=== PATIENT | female | born 1990 | race Caucasian/White ===

== ENCOUNTER → 2020-01-16 15:56 | Outpatient (CLI) | payer OTHER, SELFPAY ==
--- NOTE | ~2020-01-16 | US_ITS ---
EXAMINATION: US OB transvaginal EXAM DATE: 01/16/2020 16:24 INDICATION: For dating. . First trimester. TECHNIQUE: Pelvic obstetrical transabdominal sonogram was performed by a technologist. There are mu ltiple grayscale and Doppler images available for interpretation. There are no earlier studies of th is gestation for comparison. FINDINGS: Uterus measures 9.6 x 5.1 x 7.0 cm. There is intrauterine gestation sac. pole with heart rate confirmed at 124 beats per minute. The 3 mm crown-rump length corresponds to estimated ge stational age by ultrasound of 5 weeks 6 days, estimated date of confinement 09/11/2020. Yolk sac is identified. There is no sonographic evidence of subchorionic hemorrhage. Right ovary is morpholo gically normal, left not identified. IMPRESSION: Early live intrauterine gestation, age by crown-rump length 5 weeks 6 days. Reviewed, dictated and finalized at location A. L MACHINE SETTER
== END ==
PROVIDERS: Visit Provider Obstetrics & Gynecology
DX: O26.841 Uterine size-date discrepancy, first trimester (principal); Z3A.01 Less than 8 weeks gestation of pregnancy
CPT/HCPCS: 76817

== ENCOUNTER 2020-04-10 14:33 | Outpatient (CLI) | payer OTHER, SELFPAY ==
--- NOTE | ~2020-04-10 | US_ITS ---
EXAMINATION: US OB /maternal detail DATE: 04/10/2020 15:24 INDICATION: survey TECHNIQUE: Multiple obstetric sonographic images performed. FINDINGS: No prior studies for comparison. There is a single living fetus in vertex presentation. The placenta is anterior without placenta pre via. Placental margin is 6.1 cm to the cervix. Amniotic fluid volume is normal. cardiac activity and movement is noted with a heart rate of 139 beats per minute. The following anatomy was identified as normal: 4 chamber heart 3 vessel cord cord insertion kidneys urinary bladder stomach spine diaphragm ventricles cisterna magna cerebellum The following biometric data were obtained: BPD: 42mm corresponds to gestational age 18 weeks 6 days. Head circumference: 161 mm corresponds to gestational age 18 weeks 6 days. Abdominal circumference: 129 mm corresponds to gestational age 18 weeks 3 days. Femur length: 25 mm corresponds to gestational age 17 weeks 3 days. Head circumference to abdominal circumference ratio: 1.25 (normal range for expected gestational age is 1.08-1.27). Estimated weight: 223 grams +/- 33 grams using Hadlock method. IMPRESSION: 1: Single living intrauterine with an estimated gestational age of 18weeks 0days by initial ultrasound measurements, with an EDC of 09/11/2020 in vertex presentation. Appropriate interval feta l growth. 2. Normal survey. Reviewed, dictated and finalized at location A. IMPRESSION: 1: Single living intrauterine with an estimated gestational age of 18 weeks 0days by initial ultrasound measurements, with an EDC of 09/11/2020 in ve rtex presentation. Appropriate interval growth. 2. Normal survey.
== END 2020-04-10 14:34 | disposition home or self-care (01) ==
PROVIDERS: Visit Provider Obstetrics & Gynecology
DX: Z36.89 Encounter for other specified antenatal screening (principal); Z3A.18 18 weeks gestation of pregnancy
CPT/HCPCS: 76805

== ENCOUNTER 2020-09-15 08:41 | Inpatient (IN) | payer OTHER, SELFPAY ==
[2020-08-13 12:57] VITALS: BMI 30.4
[2020-09-15] VITALS (70 sets, daily range): BP systolic 88–152; BP diastolic 35–139; PULSE 57–97; RESP 18–20; TEMP 36.6–37.4; O2SAT 98–100; BMI 31.8
--- NOTE | 2020-09-15 09:25 | LDADM ---
This patient, Ivelisse Mosqueda, was admitted to Labor/Delivery/Recovery 105 on 09/15/20 at 08:41. Plans for labor, pain management and were discussed with patient. Patient/family oriented to hospital policies and general routines including ID bracelet, bed and alarms, visiting hours, pain management, procedures, bathroom and other care routines, personal items, smoking policy, room service/diet and guest tray routines, infant security routines, and visiting hours. Patient/Family are encouraged to report perceived risks to care and to ask questions if they do not understand what they are told or what they should do. See OBIX for further documentation.
[2020-09-15 09:56] LABS: Basophils Percent Auto 0.3 % (0.2-1.2); Eosinophils Absolute Auto 0.1 K/mm3 (0-0.3); Eosinophils Percent Auto 0.7 % (0-4.4); Hematocrit 38.5 % (37.0-47.0); Hemoglobin 13.5 g/dL (12.0-15.0); Immature Granulocyte Absolute 0.11 K/mm3 (0.00-0.031); Lymphocytes Absolute Auto 1.71 K/mm3 (0.9-3.2); Lymphocytes Percent Auto 16.2 % (18.3-44.2); Mean Corpuscular HGB Conc 35.1 g/dl (32-36); Mean Corpuscular Hemoglobin 32.7 pg (26-34); Mean Corpuscular Volume 93.2 fl (80-100); Mean Platelet Volume 11.6 fl (7.4-10.4); Monocytes Absolute Auto 0.9 K/mm3 (0.1-0.6); Monocytes Percent Auto 8.5 % (2.6-8.5); Neutrophils Absolute Auto 7.7 K/mm3 (1.3-6.7); Neutrophils Percent Auto 73.3 % (45.5-73.1); Platelet Count Result 193 k/mm3 (150-375); Red Blood Count 4.13 M/mm3 (4.2-5.4); Red Cell Distribution Width 12.3 % (11.5-14.5); White Blood Count 10.6 K/mm3 (4.5-10.0)
[2020-09-15] MEDS: OXYTOCIN 30 UNITS/NS 500 ML 30 UNITS/500 ML BAG 6 UNITS IV CONT (10:30)
[2020-09-15] MEDS: LACTATED RINGERS 1,000 ML 125 ML IV CONT (10:31)
[2020-09-15] MEDS: fentaNYL CITRATE INJ (*CRX) 100 MCG/2 ML VIAL 50 MCG IV PUSH (13:36)
--- NOTE | 2020-09-15 14:57 | WPDANESEPP ---
Anes - Eval Pre Procedure Procedure: labor epidural Date/Time: 09/15/20 14:57 Pre Op Diagnosis: SROM Patient Data Age: 30 Gender: F Height: 1.65 m Weight: 87 kg Last Vital Signs Temp 36.8 C 09/15/20 13:33 Pulse 75 09/15/20 14:56 BP 138/69 09/15/20 14:56 Pulse Ox 98 09/15/20 14:55 Allergies Allergy/AdvReac Type Severity Reaction Status Date / Time No Known Allergies Allergy Verified 08/13/20 12:51 Home Medications Medication Instructions Recorded Confirmed Type [id number]-FA 1 tablet PO DAILY 08/13/20 08/13/20 History [] ascorbic acid (vitamin C) [Vitamin 500 mg PO DAILY 08/13/20 09/15/20 History C] calcium carbonate [Tums] 200 mg PO PRN PRN 08/13/20 08/13/20 History ergocalciferol (vitamin D2) 1 unit PO WEEKLY 08/13/20 09/15/20 History [Vitamin D2] inulin [Fiber Gummies] 2 g PO DAILY 08/13/20 09/15/20 History Laboratory Tests 09/15/20 09/15/20 09/15/20 09:43 09:43 09:43 WBC 10.6 K/mm3 H K/mm3 (4.5-10.0) RBC 4.13 M/mm3 L M/mm3 (4.2-5.4) Hgb 13.5 g/dL g/dL (12.0-15.0) Hct 38.5 % % (37.0-47.0) MCV 93.2 fl fl (80-100) MCH 32.7 pg pg (26-34) MCHC 35.1 g/dl g/dl (32-36) RDW 12.3 % % (11.5-14.5) Plt Count 193 k/mm3 k/mm3 (150-375) MPV 11.6 fl H fl (7.4-10.4) Immature Gran % (Auto) 1.0 % H % (0-0.5) Neut % (Auto) 73.3 % H % (45.5-73.1) Lymph % (Auto) 16.2 % L % (18.3-44.2) [place] % (Auto) 8.5 % % (2.6-8.5) Eos % (Auto) 0.7 % % (0-4.4) Baso % (Auto) 0.3 % % (0.2-1.2) Lymph # (Auto) 1.71 K/mm3 K/mm3 (0.9-3.2) [place] # (Auto) 0.9 K/mm3 H K/mm3 (0.1-0.6) Eos # (Auto) 0.1 K/mm3 K/mm3 (0-0.3) Baso # (Auto) 0.0 K/mm3 K/mm3 (0.0-0.1) Abs Immat Gran (auto) 0.11 K/mm3 H K/mm3 (0.00-0.031) Absolute Neuts (auto) 7.7 K/mm3 H K/mm3 (1.3-6.7) Absolute Nucleated RBC 0.0 K/mm3 K/mm3 (0.0-0.012) Nucleated RBC % 0.0 % % (0.0-0.2) RPR Pending Blood Type A Positive Antibody Screen Negative Patient hx anesthesia problems: none Family hx anesthesia problems: none PMFSH Family History Family History Father Hypertension Mother Hypertension Social History Social History Smoking status: Never smoker Substance use: never Gender identity (if verbalized by the patient): Female Spiritual care concerns: No Exam Day of Procedure 09/15/20 14:57 Patient weight: overweight Heart: regular rate and rhythm Lungs: normal air movement Airway: Mallampati scale class II Neurological: alert and oriented
[2020-09-15] MEDS: ONDANSETRON INJ 4 MG/2 ML VIAL IV PUSH (17:25)
--- NOTE | 2020-09-15 20:32 | WPDOBADMIT ---
Obstetrics - Admit Note Admission Note: record reviewed. No pertinent additions to the history and/or any subsequent changes in the physical findings that are not consistent with the expected course of the were found. Additions to the history and/or subsequent changes in the physical findings follow. None.Here with SROM. Coby started this am. C/P on my arrival.
--- NOTE | 2020-09-15 20:32 | PM.OBPRVD ---
OB - Delivery Note Procedure Delivery date: 09/15/20 Procedure: events: Labor Induction (post SROM) Intrapartal events: None Induction method: per pitocin protocol Delivery monitor: external FHT and external uterine Route of delivery: Laceration Description: Perineal - 2nd Degree (hymen from 2-9 posterior avulsed prior to my arrival) Delivery repair: vicryl (3-0) Specimen: Yes Anesthesia type: Epidural Disposition: floor Baby Date of : 09/15/20 Weeks of gestation at delivery: 40 gender: Female Weight (pounds): 7 Weight (ounces): 1 presentation: vertex Placenta delivery description: Manual Removal (in pieces) cord vessel description: 3 Vessels score one minute: 9 score five minutes: 9
--- NOTE | 2020-09-15 20:35 | PM.OBDSVD ---
DS: Admitting Diagnosis Admitting Diagnosis Admitting Diagnosis: SROM DS: Discharge Diagnosis Discharge Diagnosis (1) (normal spontaneous vaginal delivery): Code(s): O80 - Encounter for full-term uncomplicated delivery Status: Acute (2) 40 weeks gestation of : Code(s): Z3A.40 - 40 weeks gestation of Status: Acute OB - DS: Summary OB Procedures : Ultrasound OB Procedures Intrapartum: Spontaneous Vag Delivery OB Procedures: : None Peripartum Data Infant Delivery Method: Natural Vaginal Laceration Description: Perineal - 2nd Degree complications: none Status at Discharge Functional status at discharge: independent ambulation Overall status at discharge: patient is progressing back to baseline Time Spent with Patient Time attestation: Total time spent providing and/or coordinating discharge services: DS: Data Data Completed and Pending Labs on day of discharge: Labs from last 24 hours 09/15/20 09/15/20 09/15/20 09:43 09:43 09:43 WBC 10.6 H RBC 4.13 L Hgb 13.5 Hct 38.5 MCV 93.2 MCH 32.7 MCHC 35.1 RDW 12.3 Plt Count 193 MPV 11.6 H Immature Gran % (Auto) 1.0 H Neut % (Auto) 73.3 H Lymph % (Auto) 16.2 L [place] % (Auto) 8.5 Eos % (Auto) 0.7 Baso % (Auto) 0.3 Lymph # (Auto) 1.71 [place] # (Auto) 0.9 H Eos # (Auto) 0.1 Baso # (Auto) 0.0 Abs Immat Gran (auto) 0.11 H Absolute Neuts (auto) 7.7 H Absolute Nucleated RBC 0.0 Nucleated RBC % 0.0 RPR Pending Blood Type A Positive Antibody Screen Negative Discharge Plan Discharge Attending physician on discharge: Martinez De La Cruz Discharging Clinician: Yuly Quesada Anticipated Discharge Date/Time: 09/17/20 08:36 Patient Disposition: Home, Self-Care Activity: may shower and pelvic rest Diet: regular Patient Instructions: Antibiotic Form Stand Alone Forms: General Discharge Information Follow-up/Referrals: Martinez De La Cruz MD [Physician] - 6 Weeks Discharge Medications: Continued 28-800 mg-mcg Tablet 1 tablet PO DAILY RF: 0 ergocalciferol (vitamin D2) [Vitamin D2] 1,250 mcg (50,000 unit) Capsule 1 unit PO WEEKLY RF: 0 ascorbic acid (vitamin C) [Vitamin C] 500 mg Tablet,Chewable 500 mg PO DAILY RF: 0 Fiber Gummies 2 gram Tablet,Chewable 2 g PO DAILY RF: 0 calcium carbonate [Tums] 200 mg calcium (500 mg) Tablet,Chewable 200 mg PO PRN PRN (Reason: Heartburn) RF: 0 Date of admission: 09/15/20 08:41 Primary Care Provider: PHYSICIAN,MACHINE SHOP SPECIALIST Admitting Provider: Martinez De La Cruz Attending physician on admission: Martinez De La Cruz Condition: Stable Care Plan Goals: plans condoms for control
[2020-09-15] MEDS: OXYTOCIN 30 UNITS/NS 500 ML 30 UNITS/500 ML BAG 125 UNITS IV CONT (20:45)
[2020-09-15] MEDS: BENZOCAINE 20% AER SPR (*SP) 56 GM CAN 1 SPRAY TOPICAL (22:24)
[2020-09-15] MEDS: WITCH HAZEL 40 PADS 1 PAD TOPICAL (22:24)
--- NOTE | 2020-09-15 23:00 | OBPPTRN ---
Patient transferred to post room #292 via wheelchair with in crib. Support person present. Oriented to unit, room, information board, rooming in, admission packet and security measures. Patient verbalizes understanding.
[2020-09-16 06:02] LABS: Hematocrit 39.2 % (37.0-47.0); Hemoglobin 13.6 g/dL (12.0-15.0)
[2020-09-16] MEDS: IBUPROFEN 600 MG TABLET PO ×3 (06:55→21:10)
[2020-09-16] MEDS: MULTIVIT/MIN/PREN/FOL AC/IRON TABLET 1 TAB PO (06:55)
[2020-09-16] MEDS: LANOLIN (LANSINOH) 7.5 GM CREAM 1 APPLIC TOPICAL (06:56)
[2020-09-16] MEDS: DOCUSATE SODIUM 100 MG CAPSULE PO (06:56)
[2020-09-16 07:00] VITALS: BP 116/64; PULSE 67; RESP 14; TEMP 36.8; O2SAT 98
--- NOTE | 2020-09-16 07:39 | PM.OBPNVD ---
OB - PN: Subj Subjective Date/time seen: 09/16/20 07:39 doing well has not voided since delivery full bladder OB - PN: Obj Data Labs CBC & Chem 7: 09/16/20 05:01 Labs: Laboratory Results - last 24 hr 09/15/20 09/15/20 09/16/20 09:43 09:43 05:01 WBC 10.6 H RBC 4.13 L Hgb 13.5 13.6 Hct 38.5 39.2 MCV 93.2 MCH 32.7 MCHC 35.1 RDW 12.3 Plt Count 193 MPV 11.6 H Immature Gran % (Auto) 1.0 H Neut % (Auto) 73.3 H Lymph % (Auto) 16.2 L [place] % (Auto) 8.5 Eos % (Auto) 0.7 Baso % (Auto) 0.3 Lymph # (Auto) 1.71 [place] # (Auto) 0.9 H Eos # (Auto) 0.1 Baso # (Auto) 0.0 Abs Immat Gran (auto) 0.11 H Absolute Neuts (auto) 7.7 H Absolute Nucleated RBC 0.0 Nucleated RBC % 0.0 Blood Type A Positive Antibody Screen Negative OB - PN A/P Assessment and Plan (1) (normal spontaneous vaginal delivery): Code(s): O80 - Encounter for full-term uncomplicated delivery Status: Acute Assessment and Plan: plan straight catheter for bladder. continue with post op care. Time Spent With Patient Time: Total time spent is greater than 50% in coordination of care (as documented) at patient's floor/unit and/or counseling patient: Exam : Other: uterus above umbilicus, bladder scan shows full bladder 1300 cc
[2020-09-16 08:52] LABS: Rapid Plasma Reagin Non-Reactive (NonReactive)
--- NOTE | 2020-09-16 11:20 | PC.NURSE ---
Mother called out for assist with feeding. Consulted with patient, mother reprots slight tenderness with feedings. Discussed tenderness is normal and reviewed nipple care. Reviewed feeding cues, frequencies, duration of feedings, feeding elimination flow sheet, and signs of adequate intake. Demonstrated stimulation techniques to wake for feeding. Assisted with infant to breast. Reviewed positioning/alignment in cross cradle, holding breast in U hold and guided asymmetrical latch on. Infant was able to latch correctly. nursed sleepily, with bursts of steady draws followed with long pausing and occasional swallowing noted. Reviewed signs of a correct latch, effective nursing and suck swallow ratio. Infant was able to maintain latch without discomfort to mother. Suggested to stimulate while feeding to keep infant awake and nursing effectively for increased intake and to assist with maintaining deep latch. Demonstrated how to adjust latch more deeply while feeding. Instructed mother to call out for RN assistance if she is unable to latch infant for feeding or she has discomfort with nursing. Instructed feeding should be initiated three hours from start of last feeding or if feeding cues are noted before. Mother voiced understanding of information shared.
[2020-09-16] MEDS: ACETAMINOPHEN 325 MG TABLET 650 MG PO (16:55)
[2020-09-16 20:30] VITALS: BP 120/55; PULSE 65; RESP 18; TEMP 37.2
[2020-09-17] MEDS: IBUPROFEN 600 MG TABLET PO ×2 (05:52→12:14)
[2020-09-17] MEDS: ACETAMINOPHEN 325 MG TABLET 650 MG PO ×2 (05:53→12:17)
--- NOTE | 2020-09-17 07:49 | PM.OBPNVD ---
OB - PN: Subj Subjective Date/time seen: 09/17/20 07:49 Patient comments: no complaints and pain well controlled baby status: doing well and nursing well OB - PN: Obj Data Labs CBC & Chem 7: 09/16/20 05:01 Labs: Laboratory Results - last 24 hr 09/15/20 09:43 RPR Non-reactive OB - PN A/P Plan day: 2 Plan: routine care, discharge home, follow up 6 weeks and other (plans condoms ) Time Spent With Patient Time: Total time spent is greater than 50% in coordination of care (as documented) at patient's floor/unit and/or counseling patient: Exam : Bimanual exam- vagina & uterus: other (Uterus firm, nt @U)
--- NOTE | 2020-09-17 08:00 | PC.NURSE ---
PT introductions made and plan of care discussed per post , pain management, breast feeding daily care activities and pending discharge to home. PT verbalized understanding of such care.
[2020-09-17 08:10] VITALS: BP 104/65; PULSE 66; RESP 16; TEMP 36.8; O2SAT 98
--- NOTE | 2020-09-17 09:15 | PC.NURSE ---
Consulted with patient, mother reports infant has been eagerly feeding with slight tenderness, more to right than left. Demonstrated stimulation techniques to wake infant for feeding. Assisted with infant to breast. sleepy several minutes of stimulate to wake to feed. Reviewed infant feeding cues, frequencies, duration of feedings, feeding elimination flow sheet, and signs of adequate intake. Reviewed positioning/alignment in cross cradle, holding breast in U hold and guided asymmetrical latch on. Infant was able to latch correctly. Infant nursed eagerly, with steady draws and occasional swallowing noted. Reviewed signs of a correct latch, effective nursing and suck swallow ratio. Infant was able to maintain latch without discomfort to mother. Nipple care reviewed. Advised to stimulate to keep awake and nursing effectively for increased intake and to assist with maintaining deep latch. Mother is feeding as required and waking infant to feed if needed. Infant is currently meeting outcomes for weight, output, jaundice and feeding frequencies. Mother states she feels confident to continue effective at home. Reviewed transition to breast milk, signs of adequate intake, and engorgement/relief. Instructed to call ICP if intake/output less than required. Reviewed regular medications mother is taking. Information provided per Lizz. Reviewed community resources on the [facility] website and in the Mom/Baby guide. Information on outpatient services provided. Mother has no further questions at this time.
--- NOTE | 2020-09-17 10:00 | PC.NURSE ---
Patient viewed the discharge video Mother & Baby Care, The First Two Weeks . Patient was given the opportunity and encouraged to ask questions. Patient verbalized understanding of information shared and has been given the mother/baby guide for home reference.
[2020-09-17 11:30] VITALS: PULSE 66; RESP 16; O2SAT 98
--- NOTE | 2020-09-17 12:00 | PC.NURSE ---
PT received discharge instructions per protocol and verbalized understanding of such instructions.
[2020-09-17] MEDS: DOCUSATE SODIUM 100 MG CAPSULE PO (12:14)
[2020-09-17] MEDS: MULTIVIT/MIN/PREN/FOL AC/IRON TABLET 1 TAB PO (12:17)
--- NOTE | 2020-09-17 12:40 | PC.NURSE ---
PT discharged to home ambulatory accompanied by spouse and and taken to waiting car. follow up appts confirmed
== END 2020-09-17 12:40 | disposition home or self-care (01) | DRG 807 ==
LOC: ANHOB2 09-18 12:25 → ANHLDR 09-18 12:25
PROVIDERS: Admitting Provider Obstetrics & Gynecology; Visit Provider Obstetrics & Gynecology Gynecology
DX: O70.1 Second degree perineal laceration during delivery (principal); Z37.0 Single live birth; Z3A.40 40 weeks gestation of pregnancy
CPT/HCPCS: 36415; 85014; 85018; 85025; 86592; 86850; 86900; 86901; 88307; A9270; J2405; J2590; J2795; J3010; J7120